=== PATIENT | male | born 1975 | race Caucasian/White ===

== ENCOUNTER 2021-08-21 09:00 | Emergency (ER) | payer OTHER, SELFPAY ==
[2021-08-21 09:00] VITALS: BP 151/101; PULSE 90; RESP 16; TEMP 36.3; O2SAT 97; BMI 25.1
--- NOTE | 2021-08-21 09:29 | MRI_ITS ---
STUDY: MRI LUMBAR SPINE WITHOUT CONTRAST REASON FOR EXAM: Male, 46 years old. Low back pain and right leg weakness. Hx of abscess and lumbar surgery 2013,and DDD TECHNIQUE: Standardized fat and water weighted pulse sequences were obtained in the sagittal and axial planes. COMPARISON: MRI lumbar spine without contrast 08/11/2013. FINDINGS: T11-T12: Normal endplates. Normal disc height and morphology. No ventral extradural defect. Mild to moderate left degenerative facet arthropathy. Normal right facet joint. Normal central canal and bilateral lateral lateral recesses. Normal bilateral intervertebral neural foramina. T12-L1: Prominent anterior marginal spurs. Normal endplates. Normal disc height and morphology. Normal facet joints. Normal central canal and bilateral lateral recesses. Normal bilateral intervertebral neural foramina. Normal lumbar lordosis. There is no substantial scoliosis. Normal conus medullaris that terminates at the lower T12 vertebral body level. L1-2: Anterior marginal spurs. Mild reactive marrow fatty infiltration underneath the anterior L2 superior endplate. Mild disc space height narrowing. Mild ventral extradural defect due to small posterior annular bulging disc and minimal degenerative retrolisthesis of L1 on L2. Mild bilateral degenerative facet arthropathy. Mild central canal stenosis with an AP canal diameter of 10.8 mm. Mild dorsal epidural lipomatosis. Normal bilateral lateral recesses. Mild stenosis of the right intervertebral neural foramen. Normal left intervertebral neural foramen. L2-3: Normal endplates. Normal disc height, hydration and morphology. Mild asymmetric degenerative facet arthropathy, right greater than left. Mild central canal stenosis with an AP canal diameter 10.5 mm. Normal bilateral lateral recesses. Normal bilateral intervertebral neural foramina. L3-4: Normal endplates. Mild disc space height narrowing. Mild bilateral degenerative facet arthropathy. Moderate central canal stenosis with an AP canal diameter of 8.4 mm. Normal bilateral lateral recesses. Normal bilateral intervertebral neural foramina. L4-5: Normal endplates. Minimal disc space height narrowing. Mild ventral extra dural defect due to small posterior bulging annulus. Small T2 hyperintensity zone underneath the posterior bulging annulus is suggestive of small annular fissure. Moderate central canal stenosis with an AP canal diameter of 8.4 mm. Normal bilateral lateral recesses. Normal bilateral intervertebral neural foramina. L5-S1: Normal endplates. Mild disc space height narrowing. Small T2 hyperintensity underneath the posterior bulging annulus is suggestive of small annular fissure. No significant facet arthropathy. Mild asymmetric central canal stenosis with an AP canal diameter of 9.5 mm. Normal visualized sacral ala. Normal visualized paraspinous soft tissue structures. MRI/Spine Lumbar (Routine) IMPRESSION: 1. No MRI evidence of lumbar extruded disc fragment. 2. Moderate central canal stenosis at L4-L5 disc space level with an AP canal diameter of 8.4 mm and is small posterior annular fissure underneath the posterior bulging annulus. This is a new finding. 3. Moderate central canal stenosis at L3-L4 disc space level with an AP canal diameter of 8.4 mm. This is unchanged. 4. Mild asymmetric central canal stenosis at L5-S1 disc space level with an AP canal diameter of 9.5 mm and a small posterior annular fissure underneath the posterior bulging annulus. This is unchanged. 5. Mild central canal stenosis at L1-L2 disc space level with an AP canal diameter of 10.8 mm, small posterior bulging annulus, minimal degenerative retrolisthesis of L1 on L2 and mild stenosis of the right intervertebral neural foramen. This level is unchanged. Electronically Signed: Pantera Diaz MD at 11:18 EDT ,
--- NOTE | 2021-08-21 09:32 | EDS_ITS ---
HPI History of Present Illness Chief Complaint: Back Informant: patient and spouse/S.O. Narrative Narrative: 46-year-old male presenting to the emergency department with chief complaint of low back pain. Patient is on disability because of low back issues. He has had prior epidural abscess and laminectomy. He states that he chronically has pain in the low back. Over the past couple weeks has had an increase of pain in the right lower back. He states that he was doing pretty good on Saturday thought that it was better. He went mushroom hunting the next day had a significant increase in pain. He states that he has fallen a couple times at home and the right leg is weaker than normal. He notes a paresthesia extending from the right hip anteriorly across the thigh to the medial aspect of the thigh. He called his primary care doctor today who told him to come to the hospital. He denies any fevers or bowel or bladder dysfunction. He denies any rashes. No IV drug use. [facility] Medical History (Updated 08/21/21 @ 11:[address] Henri Jacobs DO) Epidural abscess Home Medications diazepam 5 mg PO TID PRN PRN 08/11/13 [History Last Taken Unknown] oxycodone-acetaminophen 2 tab PO Q4H PRN PRN 08/11/13 [History Last Taken Unknown] prednisone 10 mg PO DAILY PRN 08/11/13 [History Last Taken Unknown] buspirone 5 mg PO TID 08/21/21 [History Last Taken Unknown] cyclobenzaprine 10 mg PO TID PRN PRN 08/21/21 [History Last Taken Unknown] diazepam 5 mg PO Q8 PRN 5 Days #15 tab 08/21/21 [Rx Last Taken Unknown] gabapentin 600 mg PO TID 08/21/21 [History Last Taken Unknown] meloxicam 15 mg PO DAILY 08/21/21 [History Last Taken Unknown] oxycodone-acetaminophen 1 tab PO Q6H PRN PRN 5 Days #20 tablet 08/21/21 [Rx Last Taken Unknown] Allergy/AdvReac Type Severity Reaction Status Date / Time No Known Allergies Allergy Verified 08/11/13 09:51 Surgical History (Updated 08/21/21 @ 09:[address] Henri Jacobs DO) H/O laminectomy Social History (Updated 05/02/22 @ 09:[address] Henri Jacobs, DO) current gender identity: male Smoking Status: Former smoker ROS ROS ED Constitutional Constitutional ED: Denies chills, fever(s) or weight loss Eyes Eyes: Denies change in vision or diplopia ENT ENT ED: Denies ear pain, rhinorrhea or sore throat Cardiovascular Cardiovascular: Denies chest pain, orthopnea, palpitations or racing heartbeat Respiratory/Chest Respiratory/Chest: Denies cough, dyspnea or orthopnea Gastrointestinal Gastrointestinal: Denies abdominal pain, diarrhea, nausea or vomiting Genitourinary Genitourinary ED: Denies dysuria, hematuria or urinary frequency Musculoskeletal Musculoskeletal: Reports back pain; Denies arthralgias or myalgias Integumentary Denies abscess or rash Neurologic Neurologic: Reports paresthesias and weakness; Denies headache(s) Psychiatric Psychiatric: Denies anxiety, depression, suicidal ideation or suicidal thoughts Endocrine Endocrinology: Denies polydipsia, polyphagia or polyuria Allergic/Immunologic Allergic/Immunologic ED: Denies mouth swelling, tongue swelling or urticaria EXAM Physical Exam Const Vital Signs: 08/21/21 09:00 08/21/21 11:00 Temperature 97.4 F L Temperature Source Temporal Pulse Rate 90 51 L Respiratory Rate 16 16 Blood Pressure 151/101 H 122/90 H Blood Pressure Mean 117 100 Pulse Ox 97 98 Oxygen Delivery Method Room Air Room Air Positive well nourished and well developed General Appearance ED: well developed HEENT Reports normocephalic, head/scalp atraumatic, TM's clear and moist mucous membranes Negative for trauma Tympanic Membrane ED: Yes TM's clear Eyes PERRL and EOMs intact bilaterally Neck no lymphadenopathy, supple and no JVD Resp normal respiratory effort and clear to auscultation bilaterally Cardio regular rate, regular rhythm and no murmurs GI normal to inspection, nondistended, normoactive bowel sounds and non-tender Palpation: soft Back/Spine no CVA tenderness and normal ROM Back/Spine Narrative: TTP in the R Lower Lumbar/ SI region. no TT changes to suggest infection. Extremity normal to inspection General Extremety ED: Negative for edema General Extremity: Negative for edema Neuro oriented x3 and CN's II-XII intact bilaterally Neuro Narrative: CHAMBERS Sensorium / Orientation: alert Sensory Exam: No sensory level loss detected Motor Exam: strength 5/5 throughout Psych mental status grossly normal Mood & Affect: Negative for depressed or tearful Skin no rashes or lesions noted and no wounds MDM MDM MDM Narrative Medical decision making narrative: Basic blood work essentially negative White count is 8.9. Patient received a milligram of Dilaudid as well as Zofran. MRI was obtained. This does not demonstrate anything that needs emergent evaluation on. I will write for some diazepam and some additional Percocet as he is almost out. I did review an [facility] report. Patient is comfortable with this plan and he will follow-up with his back doctors Lab Data Attestation: I reviewed the patient's lab results. Labs: Laboratory Results - last 24 hr 08/21/21 08/21/21 10:00 10:00 WBC 8.9 RBC 4.79 Hgb 14.0 Hct 43.1 MCV 90.0 MCH 29.2 MCHC 32.5 RDW Std Deviation 43.0 RDW Coeff of Clive 13.0 Plt Count 264 MPV 10.1 Immature Gran % (Auto) 0.400 Neut % (Auto) 80.0 H Lymph % (Auto) 13.0 L Chambers % (Auto) 4.6 Eos % (Auto) 1.2 Baso % (Auto) 0.8 Absolute Neuts (auto) 7.1 Absolute Lymphs (auto) 1.16 Nucleated RBC % 0 Sodium 135 L Potassium 3.8 Chloride 103 Carbon Dioxide 28.0 Anion Gap 4 L BUN 10 Creatinine 0.94 Estim Creat Clear Calc 102.47 Est GFR (MDRD) Af Amer 112 Est GFR (MDRD) Non-Af 93 BUN/Creatinine Ratio 10.7 Glucose 109 H Calcium 9.3 Total Bilirubin 0.80 AST 25 ALT 18 Alkaline Phosphatase 79 Total Protein 7.6 Albumin 4.3 Globulin 3.3 Albumin/Globulin Ratio 1.3 Radiography Diagnostic Testing: Clinical Impression(s) from Imaging Studies Lumbar Spine MRI 08/21/21 09:29 IMPRESSION: 1. No MRI evidence of lumbar extruded disc fragment. 2. Moderate central canal stenosis at L4-L5 disc space level with an AP canal diameter of 8.4 mm and is small posterior annular fissure underneath the posterior bulging annulus. This is a new finding. 3. Moderate central canal stenosis at L3-L4 disc space level with an AP canal diameter of 8.4 mm. This is unchanged. 4. Mild asymmetric central canal stenosis at L5-S1 disc space level with an AP canal diameter of 9.5 mm and a small posterior annular fissure underneath the posterior bulging annulus. This is unchanged. 5. Mild central canal stenosis at L1-L2 disc space level with an AP canal diameter of 10.8 mm, small posterior bulging annulus, minimal degenerative retrolisthesis of L1 on L2 and mild stenosis of the right intervertebral neural foramen. This level is unchanged. Electronically Signed: Pantera Diaz MD at 11:18 EDT , Discharge Plan Triage Chief Complaint: Back ED Provider: Henri Jacobs Dx/Rx/DC Orders Clinical Impression: Acute low back pain, Acute lumbar radiculopathy Instructions: ED Sciatica Prescriptions: New diazepam [diazepam] 5 MG tablet 5 mg PO Q8 PRN (Reason: Muscle Spasm) 5 Days Qty: 15 RF: 0 oxycodone-acetaminophen [oxycodone-acetaminophen] 1 TABLET tablet 1 tab PO Q6H PRN PRN (Reason: pain) 5 Days Qty: 20 RF: 0 No Action oxycodone-acetaminophen 1 TABLET tablet 2 tab PO Q4H PRN PRN (Reason: Pain) RF: 0 prednisone 2.5 MG tablet 10 mg PO DAILY PRN (Reason: Pain) RF: 0 diazepam 5 MG tablet 5 mg PO TID PRN PRN (Reason: Pain) RF: 0 cyclobenzaprine 10 mg tablet 10 mg PO TID PRN PRN (Reason: Muscle Spasm) RF: 0 buspirone 5 mg tablet 5 mg PO TID RF: 0 meloxicam 15 mg tablet 15 mg PO DAILY RF: 0 gabapentin 300 mg capsule 600 mg PO TID RF: 0 Primary Care Provider: Sena Boss Referrals: Sena Bsos MD [Primary Care Provider] - Activity Restrictions/Additional Instructions: Please arrange follow-up with your back physician Disposition Disposition: Home, Self Care
[2021-08-21] MEDS: Ondansetron 4 MG/2 ML Vial IV (09:56)
[2021-08-21] MEDS: HYDROmorphone 1 MG/ML Syringe IV (09:59)
[2021-08-21 10:15] LABS: Absolute Lymphocyte Count 1.16 X10^3/uL (0.83-4.51); Absolute Neutrophil Count 7.1 X10^3/uL (2.0-7.7); Basophil# 0.07 X10^3/uL; Basophil% 0.8 % (0-1); Eosinophil# 0.11 X10^3/uL; Eosinophils% 1.2 % (0-5); Hematocrit 43.1 % (40-54); Lymphocyte # 1.16 X10^3/ul (0.83-4.51); Mean Corp Hgb Conc 32.5 g/dL (32-36); Mean Corpuscular Hgb 29.2 pg (27.0-32.0); Mean Platelet Vol. 10.1 fl (6.2-12.0); Monocyte# 0.41 X10^3/uL; Monocyte% 4.6 % (0-10); NRBC Flagged by Analyzer 0 % (0-5); Neutrophil # 7.12 X10^3/uL (2.7-7.7); Platelet Count 264 K/mm3 (150-450); Red Blood Count 4.79 M/mm3 (4.6-6.2); White Blood Count 8.9 K/mm3 (4.4-11.0)
[2021-08-21 10:33] LABS: ALB/GLOB Ratio 1.3 RATIO (0.9-2.4); AST(SGOT) 25 U/L (15-37); Alanine Aminotransfer ALT/SGPT 18 U/L (16-61); Albumin, Serum 4.3 g/dL (3.2-5.0); Alkaline Phosphatase 79 U/L (45-117); Anion Gap 4 (5-15); BUN 10 mg/dL (7-18); BUN/Creat Ratio 10.7 RATIO (10-20); Calcium,Total 9.3 mg/dL (8.5-10.1); Chloride 103 mmol/L (98-107); Creatinine, Serum 0.94 mg/dL (0.70-1.30); EST Glomerular Filtration Rate 93 mL/min (>60); Est Glom Filt Rate - Afr Amer 112 mL/min (>60); Estimated Creatinine Clearance 102.47 ml/min; Globulin 3.3 g/dL (2.2-4.2); Glucose 109 mg/dL (74-106); Potassium 3.8 mmol/L (3.5-5.1); Protein, Total 7.6 g/dL (6.4-8.2); Sodium Level 135 mmol/L (136-145)
[2021-08-21 11:00] VITALS: BP 122/90; PULSE 51; RESP 16; O2SAT 98
== END 2021-08-21 12:00 | disposition home or self-care (01) ==
PROVIDERS: Emergency Provider Emergency Medicine; PCP Internal Medicine; Visit Provider Emergency Medicine
DX: M54.16 Radiculopathy, lumbar region (principal); G89.29 Other chronic pain; Z98.1 Arthrodesis status; Z87.891 Personal history of nicotine dependence
CPT/HCPCS: 72148; 80053; 85025; 96374; 96375; 99283; A4216; J2405